=== PATIENT | female | born 1995 ===

== ENCOUNTER 2016-12-08 05:59 | Emergency (ER) | payer MEDICAID ==
[2016-12-08 05:59] VITALS: BMI 21.2
[2016-12-08] MEDS ORDERED: Sodium Chloride 0.9% 1,000 ML IV ONE (06:15)
[2016-12-08 06:25] LABS: RBC URINE 1 /hpf (0-3); URINE BACTERIA RARE (<OCC); URINE BILIRUBIN NEGATIVE (NEGATIVE); URINE BLOOD NEGATIVE (NEGATIVE); URINE COLOR Yellow (YELLOW); URINE GLUCOSE (UA) NORMAL (Normal); URINE KETONE NEGATIVE (NEGATIVE); URINE LEUKOCYTE ESTERASE 1+ Leu/uL (Negative); URINE PROTEIN NEGATIVE (NEGATIVE); URINE UROBILINOGEN NORMAL mg/dL (0.2-1.0); WBC URINE 9 /hpf (0-5)
--- NOTE | 2016-12-08 06:31 | C.PDOC ---
History Of Present Illness Patient is a 21 year old female who presents to the ER with a complaint of epigastric pain for the past 2 days and nausea upon arrival. Patient states she has had similar pain in the past and reports taking a laxative for constipation ; patient had a few large bowel movements, however, pain continues. Denies fever or chills. Time Seen by Provider: 12/08/16 06:15 Chief Complaint (Nursing): Abdominal Pain History Per: Patient History/Exam Limitations: no limitations Onset/Duration Of Symptoms: Days (2) Current Symptoms Are (Timing): Still Present Location Of Pain/Discomfort: Epigastric Radiation Of Pain To:: None Quality Of Discomfort: Unable To Describe Associated Symptoms: Nausea. denies: Fever, Chills Exacerbating Factors: None Alleviating Factors: None Recent travel outside of the [place]: No Past Medical History Reviewed: Historical Data, Nursing Documentation, Vital Signs Vital Signs: Last Vital Signs Temp 98 F 12/08/16 06:06 Pulse 60 12/08/16 06:06 Resp 16 12/08/16 06:06 BP 132/86 12/08/16 06:06 Pulse Ox 98 12/08/16 07:19 - Medical History PMH: No Chronic Diseases Surgical History: No Surg Hx Family History: States: Unknown Family Hx - Social History Hx Tobacco Use: No Hx Alcohol Use: Yes Hx Substance Use: No - Immunization History Hx Tetanus Toxoid Vaccination: No Hx Influenza Vaccination: Yes Hx Pneumococcal Vaccination: No Review Of Systems Constitutional: Negative for: Fever, Chills Gastrointestinal: Positive for: Nausea, Abdominal Pain (Epigastric) Physical Exam - Physical Exam Appears: Non-toxic, No Acute Distress Skin: Normal Color, Warm, Dry Head: Atraumatic, Normacephalic Oral Mucosa: Moist Chest: Symmetrical, No Tenderness Cardiovascular: Rhythm Regular, No Murmur Respiratory: Normal Breath Sounds, No Rales, No Rhonchi, No Wheezing Gastrointestinal/Abdominal: Soft, Tenderness (Epigastric), No Guarding, No Rebound Neurological/Psych: Oriented x3, Normal Speech, Normal Cognition ED Course And Treatment - Laboratory Results Result Diagrams: 12/08/16 06:43 12/08/16 06:43 O2 Sat by Pulse Oximetry: 98 (Room air) Pulse Ox Interpretation: Normal Progress Note: Blood work ordered. Pepcid, zofran and IV fluids administered. Reevaluation Time: 07:20 Reassessment Condition: Improved (feels better and understands return precautions) Disposition Counseled Patient/Family Regarding: Diagnosis, Need For Followup - Disposition Disposition: HOME/ ROUTINE Disposition Time: 07:17 Condition: STABLE Additional Instructions: AVOID SPICY, GREASY FOODS INCREASE FLUIDS RETURN TO ER IF WORSE Instructions: Gastritis (ED) - Clinical Impression Clinical Impression: Gastritis - Scribe Statement The provider has reviewed the documentation as recorded by the Jonathanibrodrigo Fields All medical record entries made by the Macario were at my direction and personally dictated by me. I have reviewed the chart and agree that the record accurately reflects my personal performance of the history, physical exam, medical decision making, and the department course for this patient. I have also personally directed, reviewed, and agree with the discharge instructions and disposition.
[2016-12-08] MEDS ORDERED: Sodium Chloride 0.9% 1,000 ML ONE (06:44)
[2016-12-08 06:46] LABS: BASO % 0.2 % (0.0-2.0); EOS # 0.1 K/uL (0.0-0.7); EOS % 1.6 % (0.0-4.0); LYMPH # 2.6 K/uL (1.0-4.3); LYMPH % 38.4 % (20.0-40.0); MEAN CELL VOLUME 87.1 fL (81.0-99.0); MEAN CORPUSCULAR HEMOGLOBIN 28.6 pg (27.0-31.0); MEAN CORPUSCULAR HGB CONC 32.8 g/dL (33.0-37.0); MEAN PLATELET VOLUME 9.5 fL (7.2-11.7); MONO # 0.7 K/uL (0.0-0.8); MONO % 9.8 % (0.0-10.0); NRBC % 0.1 % (0.0-2.0); RED CELL DISTRIBUTION WIDTH 13.4 % (11.5-14.5); WHITE BLOOD COUNT 6.8 K/uL (4.8-10.8)
[2016-12-08 06:56] LABS: CHLORIDE 107 mmol/L (98-107); POTASSIUM 3.6 mmol/L (3.6-5.2); SODIUM 140 mmol/L (132-148)
[2016-12-08 06:58] LABS: AST/SGOT 28 U/L (14-36); BILIRUBIN,TOTAL 0.6 mg/dL (0.2-1.3); CARBON DIOXIDE 22 mmol/L (22-30); GFR AFRICAN-AMERICAN > 60
[2016-12-08 06:59] LABS: ALB/GLOB RATIO 1.3 (1.0-2.1); ALKALINE PHOSPHATASE 41 U/L (38-126); ALT/SGPT 28 U/L (9-52); BLOOD UREA NITROGEN 9 mg/dL (7-17); CALCIUM 8.9 mg/dl (8.6-10.4); GLUCOSE,RANDOM 85 mg/dL (65-105); TOTAL PROTEIN 6.9 g/dL (6.3-8.3)
[2016-12-08 07:29] VITALS: BP 115/72; PULSE 54; RESP 20; TEMP 98.2; O2SAT 100
[2016-12-08] MEDS ORDERED: Aluminum Hydroxide/Magnesium Hydroxide Susp (30 mL) ONE (07:34)
[2016-12-08] MEDS ORDERED: Alum-Mag Hydrox-Simethicone Susp (30 mL) PO STA (07:35)
== END 2016-12-08 07:52 | disposition home or self-care (01) ==
LOC: C.ER 05:59
DX: K29.70 Gastritis, unspecified, without bleeding (principal)
CPT/HCPCS: 80053; 81001; 83690; 84703; 85025; 96361; 96374; 96375; 99284; J2405; J7040

== ENCOUNTER 2018-09-05 21:54 | Emergency (ER) | payer MEDICAID, OTHER ==
[2018-09-05 21:54] VITALS: BMI 21.2
[2018-09-05 22:15] VITALS: BP 139/90
[2018-09-06 00:21] VITALS: PULSE 99; RESP 18; TEMP 99.5; O2SAT 100
--- NOTE | 2018-09-06 01:05 | C.PDOC ---
History Of Present Illness 23 year old female presents with generalized body aches, subjective fever, sore throat, and runny nose for the past 2 days. She has been taking OTC antipyretic with no relief. Denies chest pain, SOB, vomiting, diarrhea, recent travel, or sick contact. Time Seen by Provider: 09/05/18 22:56 Chief Complaint (Nursing): Flu-like Symptoms History Per: Patient History/Exam Limitations: no limitations Onset/Duration Of Symptoms: Days (2) Current Symptoms Are (Timing): Still Present Location Of Pain: Throat, Diffuse Myalgias Sick Contacts (Context): None Associated Symptoms: Fever (Subjective), Sore Throat, Sinus Drainage, Myalgias Recent travel outside of the [place]: No Past Medical History Reviewed: Historical Data, Nursing Documentation, Vital Signs Vital Signs: Last Vital Signs Temp 99.5 F 09/06/18 00:21 Pulse 99 H 09/06/18 00:21 Resp 18 09/06/18 00:21 BP 139/90 09/05/18 22:12 Pulse Ox 100 09/06/18 00:21 Family History: States: Unknown Family Hx - Social History Hx Tobacco Use: No Hx Alcohol Use: Yes Hx Substance Use: No - Immunization History Hx Tetanus Toxoid Vaccination: No Hx Influenza Vaccination: Yes Hx Pneumococcal Vaccination: No Review Of Systems Constitutional: Positive for: Fever (Subjective) ENT: Positive for: Nose Discharge, Throat Pain Cardiovascular: Negative for: Chest Pain Respiratory: Negative for: Shortness of Breath Gastrointestinal: Negative for: Vomiting, Diarrhea Musculoskeletal: Positive for: Other (Generalized body aches) Physical Exam - Physical Exam Appears: Non-toxic Skin: Normal Color, Warm, Dry Head: Atraumatic, Normacephalic Eye(s): bilateral: Normal Inspection Ear(s): Bilateral: Normal Nose: Normal Oral Mucosa: Moist Throat: No Exudate, Other (Enlarge erythematous tonsils) Neck: Normal, Supple Cardiovascular: Rhythm Regular Respiratory: Normal Breath Sounds, No Wheezing Gastrointestinal/Abdominal: Normal Exam, Soft, No Tenderness Back: No CVA Tenderness Extremity: Normal ROM Neurological/Psych: Oriented x3, Normal Speech Gait: Steady ED Course And Treatment O2 Sat by Pulse Oximetry: 100 (Room air) Pulse Ox Interpretation: Normal Progress Note: Flu swab and rapid strep ordered, results were negative, will treat empirically for flu; motrin and tamiflu administered. Patient resting comfortably in no acute distress, vitals are stable, will discharge home with Rx and internet sales director advised to follow up with PMD. Disposition Counseled Patient/Family Regarding: Diagnosis, Need For Followup, Rx Given - Disposition Referrals: [facility] [Outside] Disposition: HOME/ ROUTINE Disposition Time: 01:02 Condition: STABLE Additional Instructions: INCREASE PO FLUIDS BED REST TYLENOL AND MOTRIN FOR FEVER RETURN TO ER IF WORSE Prescriptions: Benzonatate [Tessalon Perles] 200 mg PO TID #14 sgl Ibuprofen [Motrin] 600 mg PO Q6H #30 tab Oseltamivir Cap [Tamiflu] 75 mg PO BID #10 cap Instructions: Flu, Adult (DC) Forms: [employer] (Surinamese), Work Excuse - Clinical Impression Clinical Impression: Influenza-like illness - 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 - Scribe Statement The provider has reviewed the documentation as recorded by the Scribrodrigo Fields All medical record entries made by the Jonathanibrodrigo were at my direction and personally dictated by me. I have reviewed the chart and agree that the record accurately reflects my personal performance of the history, physical exam, medical decision making, and the department course for this patient. I have also personally directed, reviewed, and agree with the discharge instructions and disposition.
[2018-09-06 01:07] LABS: INFLUENZA A B NEGATIVE FOR FLU A/B (NEGATIVE)
== END 2018-09-06 01:13 | disposition home or self-care (01) ==
LOC: C.ER 21:54
DX: J11.1 Influenza due to unidentified influenza virus with other respiratory manifestations (principal)